=== PATIENT | female | born 1950 | race African-American/Black ===

== ENCOUNTER 2024-09-30 11:22 | Emergency (ER) | payer OTHER ==
[~2024-09-30] VITALS: Ht 160 cm; Wt 45.4 kg
[2024-09-30 11:57] LABS: BASOPHILS % (AUTO) 0.4 % (0.0-2.0); EOSINOPHILS # (AUTO) 0.1 K/uL (0.0-0.7); EOSINOPHILS % (AUTO) 0.5 % (0.0-7.0); HEMATOCRIT 33.7 % (31.2-41.9); HEMOGLOBIN 11.2 g/dL (10.9-14.3); LYMPHOCYTES # (AUTO) 1.4 K/uL (0.8-4.8); LYMPHOCYTES % (AUTO) 14.1 % (20.5-51.5); MEAN CORPUSCULAR HEMOGLOBIN 28.1 uug (24.7-32.8); MEAN CORPUSCULAR HGB CONC 33 g/dL (32.3-35.6); MEAN CORPUSCULAR VOLUME 84.5 fL (75.5-95.3); MONOCYTES # (AUTO) 1.1 K/uL (0.1-1.30); NEUTROPHILS # (AUTO) 7.3 K/uL (1.8-8.9); PLATELET COUNT (AUTO) 345 K/uL (179-408); RED BLOOD CELL COUNT(AUTO) 3.99 MIL/uL (3.63-4.92); RED CELL DISTRIBUTION WIDTH 15.4 % (12.3-17.7); WHITE BLOOD COUNT (AUTO) 9.9 K/uL (3.8-11.8)
[2024-09-30 11:58] LABS: DIFFERENTIAL COMMENT 1
[2024-09-30 12:02] LABS: CALCIUM 9.5 mg/dL (8.5-10.1); CARBON DIOXIDE 28 mmol/L (21-32); CHLORIDE 108 mmol/L (98-107); CREATININE 1.6 mg/dL (0.6-1.3); GLUCOSE 93 mg/dL (74-106); POTASSIUM 3.7 mmol/L (3.5-5.1); SODIUM SERUM 146 mmol/L (136-145); UREA NITROGEN, BLOOD 13 mg/dL (7-18)
[2024-09-30 12:08] LABS: ALANINE AMINOTRANSFERASE 27 U/L (14-59); ALBUMIN 3.1 g/dL (3.4-5.0); ALKALINE PHOSPHATASE 123 U/L (50-136); ASPARTATE AMINOTRANSFERASE 39 U/L (15-37); BILIRUBIN,DIRECT 0.3 mg/dL (0.0-0.2); BILIRUBIN,TOTAL 0.8 mg/dL (0.2-1.0); LIPASE 36 U/L (16-77); TOTAL PROTEIN, SERUM 7.2 g/dL (6.4-8.2)
[2024-09-30] MEDS: IV NORMAL SALINE 500 ML BAG IV ONE (12:39)
[2024-09-30] MEDS ORDERED: PSYL1PAC9 PO (12:46)
[2024-09-30] MEDS ORDERED: AMLO-212 PO (12:48)
[2024-09-30] MEDS ORDERED: ACET325T53 PO (12:48)
[2024-09-30] MEDS ORDERED: ATOR40TA PO (12:48)
[2024-09-30] MEDS ORDERED: FOLI1TAB94 PO (12:48)
[2024-09-30] MEDS ORDERED: MIRT7.5T10 PO (12:48)
[2024-09-30 13:05] VITALS: O2SAT 95
[2024-09-30] MEDS ORDERED: LORAZEPAM 2 MG/1 ML VIAL ONE (13:13)
[2024-09-30] MEDS ORDERED: HALOPERIDOL LACTATE 5 MG/1 ML VIAL ONE (13:13)
[2024-09-30] MEDS ORDERED: diphenhydrAMINE 50 MG/1 ML VIAL ONE (13:13)
[2024-09-30] MEDS: diphenhydrAMINE 50 MG/1 ML VIAL IV ONE (13:17)
[2024-09-30] MEDS: LORAZEPAM 2 MG/1 ML VIAL IV ONE (13:17)
[2024-09-30] MEDS: HALOPERIDOL LACTATE 5 MG/1 ML VIAL IV ONE (13:18)
[2024-09-30 14:54] LABS: *BILIRUBIN,URIN 1+ (NEGATIVE); *BLOOD, URINE NEGATIVE (NEGATIVE); *CLARITY,URINE CLEAR (CLEAR); *KETONES,URINE NEGATIVE (NEGATIVE); *PROTEIN,URINE TRACE (NEGATIVE); LEUKOCYTE ESTERASE ,URINE NEGATIVE (NEGATIVE); NITRITE, URINE NEGATIVE (NEGATIVE); PH,URINE 5.5 (5.0-8.0); UGLUCOSE NEGATIVE (NEGATIVE)
[2024-09-30 15:01] LABS: *COLOR,URINE DARK YELLOW (YELLOW)
[2024-09-30 15:23] LABS: RBC,URINE 0-3 /HPF (0-3); WBC,URINE 0-3 /HPF (0-3)
[2024-09-30 15:24] LABS: BACTERIA,URINE FEW /HPF (NONE SEEN); SQUAMOUS EPITHELIAL CELL,UR FEW /HPF (NONE SEEN)
[2024-09-30 15:45] LABS: *OCCULT BLOOD STOOL NEGATIVE (NEGATIVE)
== END 2024-09-30 15:15 | disposition home or self-care (01) ==
LOC: ER 11:33
DX: K52.9 Noninfective gastroenteritis and colitis, unspecified (principal); E86.0 Dehydration; E78.5 Hyperlipidemia, unspecified; F03.90 Unspecified dementia, unspecified severity, without behavioral disturbance, psychotic disturbance, mood disturbance, and anxiety; I10 Essential (primary) hypertension; F29 Unspecified psychosis not due to a substance or known physiological condition; Z86.69 Personal history of other diseases of the nervous system and sense organs; Z87.19 Personal history of other diseases of the digestive system; Z87.39 Personal history of other diseases of the musculoskeletal system and connective tissue
CPT/HCPCS: 99285; 96374; 96375; 71045; 96361; 82270; 80076; 80048; 81001; 83690; 85025; 87046; 89055; 36415; 74018; 93005; 83605; J1200; J1630; J2060; J7040; A4606; A4663